=== PATIENT | female | born 1980 ===

== ENCOUNTER 2018-10-10 09:58 | Inpatient (IN) | payer BC ==
--- NOTE | 2018-10-10 10:55 | C.PDOC ---
History Of Present Illness 38 year old female, with no significant past medical history, presents to the ED for evaluation of an abscess to her left upper arm which developed over the past 2-3 weeks. Patient was evaluated by Dr. Spring in office and advised to report to the hospital for an I&D in the OR. Patient states the area was larger in size, but became smaller and started draining last night. Patient denies fever, chills. Time Seen by Provider: 10/10/18 10:13 Chief Complaint (Nursing): Abnormal Skin Integrity History Per: Patient History/Exam Limitations: no limitations Onset/Duration Of Symptoms: Days Current Symptoms Are (Timing): Still Present Location Of Injury: Left: Arm (upper) Quality Of Symptoms: Draining Additional History Per: Patient Past Medical History Reviewed: Historical Data, Nursing Documentation, Vital Signs Vital Signs: Last Vital Signs Temp 98 F 10/10/18 10:03 Pulse 94 H 10/10/18 10:03 Resp 18 10/10/18 10:03 BP 107/77 10/10/18 10:03 Pulse Ox 97 10/10/18 10:03 - Medical History PMH: No Chronic Diseases Surgical History: No Surg Hx Family History: States: Unknown Family Hx - Social History Hx Alcohol Use: No Hx Substance Use: No - Immunization History Hx Tetanus Toxoid Vaccination: No Hx Influenza Vaccination: Yes Hx Pneumococcal Vaccination: No Review Of Systems Constitutional: Negative for: Fever, Chills Skin: Positive for: Other (draining abscess to left upper arm ) Physical Exam - Physical Exam Appears: Non-toxic, No Acute Distress, Other (comfortable ) Skin: Warm, Dry, Other (inner aspect of left upper arm: 2.5cm fluctuant abscess that is draining purulent discharge ) Head: Atraumatic, Normacephalic Eye(s): bilateral: Normal Inspection Oral Mucosa: Moist Neck: Supple Chest: Symmetrical, No Deformity, No Tenderness Cardiovascular: Rhythm Regular, No Murmur Respiratory: Normal Breath Sounds, No Rales, No Rhonchi, No Wheezing Extremity: Normal ROM, Capillary Refill (less than 2 seconds ) Neurological/Psych: Oriented x3, Normal Speech, Normal Cognition ED Course And Treatment - Laboratory Results Result Diagrams: 10/10/18 10:57 O2 Sat by Pulse Oximetry: 97 (on RA) Pulse Ox Interpretation: Normal Progress Note: Bloodwork and urinalysis ordered and reviewed. Patient will be evaluated in the O.R. by Dr. Spring. Disposition - Disposition Forms: [employer] (Ukrainian) - Scribe Statement The provider has reviewed the documentation as recorded by the Scribe (Johanne Rincon) Provider Attestation: All medical record entries made by the Scribe were at my direction and personally dictated by me. I have reviewed the chart and agree that the record accurately reflects my personal performance of the history, physical exam, medical decision making, and the department course for this patient. I have also personally directed, reviewed, and agree with the discharge instructions and disposition.
--- NOTE | 2018-10-10 11:00 | C.PDOC ---
History Of Present Illness 38 year old female, with no significant past medical history, presents to the ED for evaluation of an abscess to her left upper arm which developed over the past 2-3 weeks. Patient was evaluated by Dr. Spring in office and advised to report to the hospital for an I&D in the OR. Patient states the area was larger in size, but became smaller and started draining last night. Patient denies fever, chills. Time Seen by Provider: 10/10/18 10:13 History Per: Patient History/Exam Limitations: no limitations Onset/Duration Of Symptoms: Abscess Current Symptoms Are (Timing): Still Present Location Of Injury: Left: Arm (upper) Quality Of Symptoms: Draining Additional History Per: Patient Past Medical History Reviewed: Historical Data, Nursing Documentation, Vital Signs Vital Signs: Last Vital Signs Temp 98 F 10/10/18 10:03 Pulse 94 H 10/10/18 10:03 Resp 18 10/10/18 10:03 BP 107/77 10/10/18 10:03 Pulse Ox 97 10/10/18 10:03 - Medical History PMH: No Chronic Diseases Surgical History: No Surg Hx Family History: States: Unknown Family Hx - Social History Hx Alcohol Use: No Hx Substance Use: No - Immunization History Hx Tetanus Toxoid Vaccination: No Hx Influenza Vaccination: Yes Hx Pneumococcal Vaccination: No Review Of Systems Constitutional: Negative for: Fever, Chills Skin: Positive for: Other (draining abscess to left upper arm ) Physical Exam - Physical Exam Appears: Non-toxic, No Acute Distress, Other (comfortable ) Skin: Warm, Dry, Other (inner aspect of left upper arm: 2.5cm fluctuant abscess that is draining purulent discharge ) Head: Atraumatic, Normacephalic Eye(s): bilateral: Normal Inspection Oral Mucosa: Moist Neck: Supple Chest: Symmetrical, No Deformity, No Tenderness Cardiovascular: Rhythm Regular, No Murmur Respiratory: Normal Breath Sounds, No Rales, No Rhonchi, No Wheezing Extremity: Normal ROM, Capillary Refill (less than 2 seconds ) Neurological/Psych: Oriented x3, Normal Speech, Normal Cognition ED Course And Treatment O2 Sat by Pulse Oximetry: 97 Progress Note: Bloodwork and urinalysis ordered and reviewed. Patient will be seen in the O.R. by Dr. Spring.
[2018-10-10 11:14] LABS: BASO # 0.1 K/uL (0.0-0.2); BASO % 0.7 % (0.0-2.0); EOS % 0.4 % (0.0-4.0); HEMOGLOBIN 11.7 g/dL (11.0-16.0); LYMPH # 2.9 K/uL (1.0-4.3); LYMPH % 24.9 % (20.0-40.0); MEAN CELL VOLUME 83.5 fL (81.0-99.0); MEAN CORPUSCULAR HGB CONC 33.5 g/dL (33.0-37.0); MONO # 0.6 K/uL (0.0-0.8); MONO % 4.9 % (0.0-10.0); NEUT # 8.2 K/uL (1.8-7.0); NEUT % 69.1 % (50.0-75.0); RBC 4.19 Mil/uL (3.80-5.20); RED CELL DISTRIBUTION WIDTH 13.7 % (11.5-14.5); WHITE BLOOD COUNT 11.8 K/uL (4.8-10.8)
[2018-10-10 11:20] LABS: INR 1.1; PROTHROMBIN TIME 12.5 SECONDS (9.7-12.2)
[2018-10-10 11:54] LABS: ALB/GLOB RATIO 1.1 (1.0-2.1); ALBUMIN 4.5 g/dL (3.5-5.0); ALT/SGPT 16 U/L (9-52); AST/SGOT 22 U/L (14-36); BLOOD UREA NITROGEN 14 mg/dL (7-17); GFR NON-AFRICAN AMERICAN > 60
[2018-10-10] MEDS ORDERED: Vancomycin 1 gm/D5W 200 ml 1 GM/200 ML BAG IVPB ONE (12:04)
[2018-10-10] MEDS ORDERED: Midazolam 2 MG/2 ML VIAL ONE (12:11)
[2018-10-10] MEDS ORDERED: Propofol 10 mg/ml Inj (20 ML) ONE (12:11)
[2018-10-10] MEDS ORDERED: Lactated Ringer's 1,000 ML IV ONE (13:13)
[2018-10-10] MEDS: HYDROmorphone 0.5 mg/0.5 ml ISec IVP PRN ×3 (13:23→15:18)
--- NOTE | 2018-10-10 14:21 | CP.PCM.PN ---
Subjective - Date & Time of Evaluation Date of Evaluation: 10/10/18 Time of Evaluation: 14:18 - Subjective Subjective: Medicine Consult note for Dr. Merino This 38 year old female, with no significant past medical history, presents to the [facility] [place] ED for evaluation of an abscess to her left upper arm which developed over the past month. It began as an irritation 1 month ago in the L arm-pit, which progressively grew over 2 wks, becoming more inflamed, warm, and tender. She went to an urgent care to have the site evaluated. A CXR, US, and Mammogram were ordered, and resulted with normal findings. She was referred to Dr. Spring by her PMD, who evaluated her yesterday. He advised her to report to the hospital for an I&D in the OR today. Early this morning, the site broke spontaneously, and partially drained. Currently she is s/p I&D in the OR with Dr. Spring. She denies f/c, dizziness, chest pain, SOB, abdominal pain, n/v, d/c, LE edema, or any additional acute complaints. 12-point ROS was reviewed and is otherwise negative. PMH: none Surgical History: No Surg Hx Meds: none NKDA Family History: Mother 71yo w/DM; Father at 48yo 2/2 AIDs SocHx: Denies tobacco or illicit drug use. ETOH socially, 1 beer /mo. 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 Full Code PMD: Dr. Marie Objective - Vital Signs/Intake and Output Vital Signs (last 24 hours): Temp Pulse Resp BP Pulse Ox 98 F 94 H 18 107/77 97 10/10/18 10:03 10/10/18 10:03 10/10/18 10:03 10/10/18 10:03 10/10/18 11:21 Intake and Output: 10/10/18 10/10/18 06:59 18:59 Intake Total 200 Balance 200 - Medications Medications: Current Medications Acetaminophen/Codeine Phosphate (Tylenol/Codeine 300 Mg/30 Mg) 1 ea PO Q4H PRN PRN Reason: pain Docusate Sodium (Colace) 100 mg PO BID [facility] Enoxaparin Sodium (Lovenox) 30 mg SC DAILY [facility] Hydromorphone HCl (Dilaudid) 0.5 mg IVP Q10M PRN PRN Reason: Pain, moderate (4-7) Stop: 10/10/18 15:00 Last Admin: 10/10/18 13:37 Dose: 0.5 mg Dextrose/Sodium Chloride (Dextrose 5%/0.45% Ns 1000 Ml) 1,000 mls @ 60 mls/hr IV [id number] Vancomycin/Sodium Chloride (Vancomycin 1 Gm/Ns 200 Ml) 1 gm in 200 mls @ 133.333 mls/hr IVPB Q12H [facility]ARYANN; Protocol Ketorolac Tromethamine (Toradol) 30 mg IVP Q6 PRN PRN Reason: pain 7-10 Stop: 10/15/18 13:09 Ondansetron HCl (Zofran Inj) 4 mg IVP Q6 PRN PRN Reason: Nausea/Vomiting Pantoprazole Sodium (Protonix Inj) 40 mg IVP DAILY [facility] - Labs Labs: 10/10/18 10:57 10/10/18 10:57 PT 12.5 SECONDS (9.7-12.2) H 10/10/18 10:57 INR 1.1 10/10/18 10:57 APTT 41 SECONDS (21-34) H 10/10/18 10:57 - Additional Findings Additional findings: - Constitutional Appears: Non-toxic, No Acute Distress - Head Exam Head Exam: ATRAUMATIC, NORMAL INSPECTION - Eye Exam Eye Exam: EOMI, Normal appearance - ENT Exam ENT Exam: Mucous Membranes Dry - Neck Exam Neck Exam: absent: Tenderness, Lymphadenopathy - Respiratory Exam Respiratory Exam: NORMAL BREATHING PATTERN. absent: Rales, Wheezes - Cardiovascular Exam Cardiovascular Exam: Regular Rate, +S1, +S2 - GI/Abdominal Exam GI & Abdominal Exam: Soft, Normal Bowel Sounds. absent: Tenderness - Extremities Exam Extremities Exam: Full ROM, Normal Inspection. absent: Pedal Edema, Tenderness note: L upper extremity bandages s/p I&D of L axilla. Site C/D/I. Mildly TTP. - Back Exam Back Exam: NORMAL INSPECTION. absent: CVA tenderness (L), CVA tenderness (R) - Neurological Exam Neurological Exam: Alert, Awake, Oriented x3 - Psychiatric Exam Psychiatric exam: Normal Affect, Normal Mood - Skin Skin Exam: Dry, Intact, Normal Color, Warm Assessment and Plan - Assessment and Plan (Free Text) Assessment: Arm Abscess - L arm * Patient s/p I&D of L axilla abscess on 10/10/18. Tolerated procedure well. Dressings C/D/I. * General surgery consult, Dr. Spring, help appreciated. * ID consult, Dr. Marie, help appreciated. * D5 1/2 NS at 60cc/hr * Vanco 1Gm IVPB Q12H * Zofran Inj) 4 mg IVP Q6 PRN * f/u wound / tissue cultures Pain Management * Tylenol/Codeine 300 Mg/30 Mg) 1 ea PO Q4H PRN mild pain * Dilaudid) 0.5 mg IVP Q10M PRN moderate pain * Toradol) 30 mg IVP Q6 PRN moderate pain Prophylaxis * Colace) 100 mg PO BID MARYANN * Lovenox) 30 mg SC DAILY MARYANN * Protonix Inj) 40 mg IVP DAILY MARYANN * SCDs Case discussed with Dr. Merino. All managment as per Dr. Merino.
--- NOTE | 2018-10-10 17:27 | CP.PCM.CON ---
History of Present Illness - History of Present Illness History of Present Illness: 38 year old female, presents to the ED for evaluation of an abscess to her left upper arm which developed over the past 2-3 weeks. Patient was seen by urgent care MD and failed out pt management Called office and referred for surgical eval- found to have large left axillary collection requiring urgent I and D PMH- gestational Diabetes FH + diabetes SH- no etoh no IVDU no smoking NKDA Review of Systems - Review of Systems All systems: reviewed and no additional remarkable complaints except - Constitutional Constitutional: As Per HPI - EENT Eyes: absent: As Per HPI, Blind Spots, Blurred Vision, Change in Vision, Decreased Night Vision, Diplopia, Discharge, Dry Eye, Exophthalmos, Floaters, Irritation, Itchy Eyes, Loss of Peripheral Vision, Pain, Photophobia, Requires Corrective Lenses, Sees Flashes, Spots in Vision, Tunnel Vision, Other Visual Disturbances, Loss of Vision, Other Ears: absent: As Per HPI, Decreased Hearing, Ear Discharge, Ear Pain, Tinnitus, Abnormal Hearing, Disequilibrium, Dizziness, Other Nose/Mouth/Throat: absent: As Per HPI, Epistaxis, Nasal Congestion, Nasal Discharge, Nasal Obstruction, Nasal Trauma, Nose Pain, Post Nasal Drip, Sinus Pain, Sinus Pressure, Bleeding Gums, Change in Voice, Dental Pain, Dry Mouth, Dysphagia, Halitosis, Hoarsness, Lip Swelling, Mouth Lesions, Mouth Pain, Odynophagia, Sore Throat, Throat Swelling, Tongue Swelling, Facial Pain, Neck Pain, Neck Mass, Other - Breasts Breasts: absent: As Per HPI, Change in Shape, Mass, Pain, Nipple Discharge, Nipple Inversion, Skin Changes, Swelling, Other - Cardiovascular Cardiovascular: absent: As Per HPI, Acrocyanosis, Chest Pain, Chest Pain at Rest, Chest Pain with Activity, Claudication, Diaphoresis, Dyspnea, Dyspnea on Exertion, Edema, Irregular Heart Rhythm, Pain Radiating to Arm/Neck/Jaw, Leg Edema, Leg Ulcers, Lightheadedness, Orthopnea, Palpitations, Paroxysmal Nocturnal Dyspnea, Pedal Edema, Radiating Pain, Rapid Heart Rate, Slow Heart Rat e, Syncope, Other - Respiratory Respiratory: absent: As Per HPI, Cough, Dyspnea, Hemoptysis, Dyspnea on Exertion, Wheezing, Snoring, Stridor, Pain on Inspiration, Chest Congestion, Excessive Mucous Production, Change in Mucous Color, Pain with Coughing, Other - Gastrointestinal Gastrointestinal: absent: As Per HPI, Abdominal Pain, Belching, Bloating, Change in Bowel Habits, Change in Stool Character, Coffee Ground Emesis, Constipation, Cramping, Diarrhea, Dyspepsia, Dysphagia, Early Satiety, Excessive Flatus, Fecal Incontinence, Heartburn, Hematemesis, Hematochezia, Loose Stools, Melena, Nausea, Odynophagia, Temesmus, Vomiting, Other - Genitourinary Genitourinary: absent: As Per HPI, Change in Urinary Stream, Difficulty Urinating, Dysuria, Flank Pain, Hematuria, Pyuria, Nocturia, Urinary Incontinence, Urinary Frequency, Urinary Hesitance, Urinary Urgency, Voiding Freq/Small Amts, Freq UTI, Hx Renal/Bladder Calculi, Hx /Renal Surgery, Bladder Distension, Other - Reproductive: Female Reproductive:Female: absent: As Per HPI, Amenorrhea, Amenorrhea/ Control, Currently Menstual, Cycle <21 Days, Cycle >35 Days, Cycle Variable, Menses 1-7 Days, Menses >/= 8 Days, Menses Variable, Cycle > 4 Weeks Between, No Menses for 6 Months, Heavy Menses, Light Menses, Normal Menses, Spotting Between Cycles, S/P Hysterectomy, Menopausal, Post Menopausal, Premenarche, Abnormal Vaginal Bleeding, Dysmenorrhea, Dyspareunia, Genital Lesions, Genital Pruritis, Pelvic Pain, Prolapse Symptoms, Sexual Dysfunction, Vaginal Discharge, Vaginal Dryness, Vaginal Odor, Vaginal Pruritis, Other - Menstruation Menstruation: absent: As Per HPI, Amenorrhea, Amenorrhea/ Control, Currently Menstual, Cycle <21 Days, Cycle >35 Days, Cycle Variable, Menses 1-7 Days, Menses >/= 8 Days, Menses Variable, Cycle > 4 Weeks Between, No Menses for 6 Months, Heavy Menses, Light Menses, Normal Menses, Spotting Between Cycles, S/P Hysterectomy, Menopausal, Post Menopausal, Premenarche, Abnormal Vaginal Bleeding, Dysmenorrhea, Other - Musculoskeletal Musculoskeletal: As Per HPI - Integumentary Integumentary: As Per HPI - Neurological Neurological: absent: As Per HPI, Abnormal Gait, Abnormal Hearing, Abnormal Movements, Abnormal Speech, Behavioral Changes, Burning Sensations, Confusion, Convulsions, Disequilibrium, Dizziness, Numbness, Focal Weakness, Frequent Falls, Headaches, Lack of Coordination, Loss of Vision, Memory Loss, Paresthesias, Radicular Pain, Restless Legs, Sensory Deficit, Syncope, Tingling, Tremor, Vertigo, Weakness, Other Visual Disturbances, Other - Psychiatric Psychiatric: absent: As Per HPI, Abnormal Sleep Pattern, Anhedonia, Anxiety, Auditory Hallucinations, Behavioral Changes, Change in Appetite, Change in Libido, Confusion, Depression, Difficulty Concentrating, Hallucinations, Homicidal Ideation, Hopelessness, Irritability, Memory Loss, Mood Swings, Panic Attacks, Paranoia, Suicidal Ideation, Visual Hallucinations, Tactile Hallucinations, Other - Endocrine Endocrine: As Per HPI - Hematologic/Lymphatic Hematologic: absent: As Per HPI, Easy Bleeding, Easy Bruising, Lymphadenopathy, Other Past Patient History - Past Social History Smoking Status: Never Smoked - PSYCHIATRIC Hx Substance Use: No - SURGICAL HISTORY Hx Surgeries: Yes Other/Comment: tooth extraction - ANESTHESIA Hx Anesthesia: Yes Hx Anesthesia Reactions: No Meds Allergies/Adverse Reactions: Allergies Allergy/AdvReac Type Severity Reaction Status Date / Time No Known Allergies Allergy Verified 10/10/18 10:08 - Medications Medications: Current Medications Acetaminophen/Codeine Phosphate (Tylenol/Codeine 300 Mg/30 Mg) 1 ea PO Q4H PRN PRN Reason: pain Docusate Sodium (Colace) 100 mg PO BID [facility] Enoxaparin Sodium (Lovenox) 30 mg SC DAILY [facility] Dextrose/Sodium Chloride (Dextrose 5%/0.45% Ns 1000 Ml) 1,000 mls @ 60 mls/hr IV .[id number] [facility] Vancomycin/Sodium Chloride (Vancomycin 1 Gm/Ns 200 Ml) 1 gm in 200 mls @ 133.333 mls/hr IVPB Q12H [facility]; Protocol Ketorolac Tromethamine (Toradol) 30 mg IVP Q6 PRN PRN Reason: pain 7-10 Stop: 10/15/18 13:09 Ondansetron HCl (Zofran Inj) 4 mg IVP Q6 PRN PRN Reason: Nausea/Vomiting Pantoprazole Sodium (Protonix Inj) 40 mg IVP DAILY [facility] Physical Exam - Constitutional Appears: Non-toxic, Chronically Ill - Head Exam Head Exam: NORMOCEPHALIC - Eye Exam Eye Exam: absent: Scleral icterus - ENT Exam ENT Exam: Mucous Membranes Dry - Neck Exam Neck exam: Negative for: Lymphadenopathy - Respiratory Exam Respiratory Exam: Decreased Breath Sounds, Clear to Auscultation Bilateral - Cardiovascular Exam Cardiovascular Exam: REGULAR RHYTHM, +S1, +S2 - GI/Abdominal Exam GI & Abdominal Exam: Diminished Bowel Sounds, Soft. absent: Tenderness - Rectal Exam Rectal Exam: Deferred - Exam Exam: NORMAL INSPECTION - Extremities Exam Extremities exam: Positive for: full ROM, normal capillary refill, pedal pulses present. Negative for: calf tenderness, joint swelling, pedal edema, tenderness Additional comments: LUE swelling wound dressing in place - Back Exam Back exam: absent: CVA tenderness (L), CVA tenderness (R) - Neurological Exam Neurological exam: Alert, CN II-XII Intact, Oriented x3, Reflexes Normal - Psychiatric Exam Psychiatric exam: Normal Mood - Skin Skin Exam: Dry, Intact Results - Vital Signs Recent Vital Signs: Last Vital Signs Temp 98 F 10/10/18 16:00 Pulse 76 10/10/18 16:00 Resp 13 10/10/18 16:00 BP 116/71 10/10/18 16:00 Pulse Ox 97 10/10/18 16:00 - Labs Result Diagrams: 10/10/18 10:57 10/10/18 10:57 Labs: Laboratory Results - last 24 hr 10/10/18 10/10/18 10/10/18 10:57 10:57 10:57 WBC 11.8 H RBC 4.19 Hgb 11.7 Hct 35.0 MCV 83.5 MCH 28.0 MCHC 33.5 RDW 13.7 Plt Count 514 H MPV 8.0 Neut % (Auto) 69.1 Lymph % (Auto) 24.9 Hodgeman % (Auto) 4.9 Eos % (Auto) 0.4 Baso % (Auto) 0.7 Neut # (Auto) 8.2 H Lymph # (Auto) 2.9 Hodgeman # (Auto) 0.6 Eos # (Auto) 0.0 Baso # (Auto) 0.1 PT 12.5 H INR 1.1 APTT 41 H Sodium 137 Potassium 4.0 Chloride 101 Carbon Dioxide 27 Anion Gap 14 BUN 14 Creatinine 0.6 L Est GFR ( Amer) > 60 Est GFR (Non-Af Amer) > 60 Random Glucose 103 Calcium 9.0 Total Bilirubin 0.4 AST 22 ALT 16 Alkaline Phosphatase 108 Total Protein 8.5 H Albumin 4.5 Globulin 4.0 H Albumin/Globulin Ratio 1.1 Urine HCG, Qual Blood Type Antibody Screen 10/10/18 10/10/18 10:57 11:40 WBC RBC Hgb Hct MCV MCH MCHC RDW Plt Count MPV Neut % (Auto) Lymph % (Auto) Hodgeman % (Auto) Eos % (Auto) Baso % (Auto) Neut # (Auto) Lymph # (Auto) Hodgeman # (Auto) Eos # (Auto) Baso # (Auto) PT INR APTT Sodium Potassium Chloride Carbon Dioxide Anion Gap BUN Creatinine Est GFR ( Amer) Est GFR (Non-Af Amer) Random Glucose Calcium Total Bilirubin AST ALT Alkaline Phosphatase Total Protein Albumin Globulin Albumin/Globulin Ratio Urine HCG, Qual Negative Blood Type O POSITIVE Antibody Screen Negative Assessment & Plan (1) Abscess of arm, left Status: Acute (2) Cellulitis Status: Acute - Assessment and Plan (Free Text) Assessment: await cultures of wound may need further debridement cont wound care as ordered will check Vanco levels
[2018-10-10] MEDS: Dextrose 5%/0.45% NS 1,000 ML IV SCH (18:00)
[2018-10-10] MEDS: Acetaminophen-Codeine 300/30 mg Tab PO PRN (19:23)
--- NOTE | 2018-10-10 22:20 | OP ---
PROCEDURE DATE: 10/10/2018 PREOPERATIVE DIAGNOSIS: Infected mass and extensive abscess of the left arm and axilla. POSTOPERATIVE DIAGNOSIS: Infected mass and extensive abscess of the left arm and axilla. PROCEDURE PERFORMED: Wide and deep excision of infected left axillary mass with underlying drainage of deep axillary abscess. SURGEON: Pb Spring MD ANESTHESIA: General. BLOOD LOSS: 40 mL. POSTOPERATIVE CONDITION: Stable. INDICATIONS FOR SURGERY: This is a 38-year-old female who presented to my office yesterday with a large impending abscess of the left arm and axilla. She presented to the emergency room where she was admitted today and taken immediately to the operating room for drainage. GROSS FINDINGS: There was an inflammatory mass in the left arm axillary region, underlying this was a deep abscess which tracked proximally deep into the axillary and chest cavity. 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 DESCRIPTION OF PROCEDURE: The patient was taken to the operating room and general anesthesia was administered. The left arm and axilla were prepped and draped. A generous elliptical incision was made surrounding the mass. It was excised and the abscess was unroofed and opened. The underlying track was found to go deep into the axilla, a portion of this was unroofed by inserting a large clamp and dividing the tissue over it. Once the abscess cavity had been widely opened, it was debrided and drained and cultured. Bleeding was controlled with the Bovie. A larger chest wall blood vessel was repaired and wound was irrigated with copious amounts of saline solution. A partial tissue flap closure was performed at the periphery. The central portion of wound was packed with saline gauze. The patient tolerated the procedure well, returned to recovery room in stable condition. Pb Spring MD
[2018-10-11 06:35] LABS: BASO # 0.1 K/uL (0.0-0.2); BASO % 0.9 % (0.0-2.0); EOS # 0.1 K/uL (0.0-0.7); EOS % 1.3 % (0.0-4.0); HEMOGLOBIN 10.7 g/dL (11.0-16.0); LYMPH # 2.3 K/uL (1.0-4.3); LYMPH % 23.5 % (20.0-40.0); MEAN CELL VOLUME 84.1 fL (81.0-99.0); MEAN CORPUSCULAR HEMOGLOBIN 28.3 pg (27.0-31.0); MEAN CORPUSCULAR HGB CONC 33.7 g/dL (33.0-37.0); MEAN PLATELET VOLUME 8.1 fL (7.2-11.7); MONO # 0.6 K/uL (0.0-0.8); MONO % 5.6 % (0.0-10.0); NEUT # 6.7 K/uL (1.8-7.0); NEUT % 68.7 % (50.0-75.0); RBC 3.76 Mil/uL (3.80-5.20); RED CELL DISTRIBUTION WIDTH 13.8 % (11.5-14.5); WHITE BLOOD COUNT 9.8 K/uL (4.8-10.8)
[2018-10-11 06:55] LABS: BLOOD UREA NITROGEN 7 mg/dL (7-17); CALCIUM 8.3 mg/dl (8.6-10.4); GFR NON-AFRICAN AMERICAN > 60
--- NOTE | 2018-10-11 07:13 | CP.PCM.PN ---
Subjective - Date & Time of Evaluation Date of Evaluation: 10/11/18 Time of Evaluation: 07:12 - Subjective Subjective: Medicine Progress Note - Dr Merino's Service Patient seen and examined at bedside. Per nursing no acute events overnight. Patient is s/p I+D of left axillary abscess. Patient tolerated the procedure well. States that the pain is controlled. She is ambulating and tolerating diet. She will be NPO at midnight for the OR tomorrow. Offers no other complaints at this time. Objective - Vital Signs/Intake and Output Vital Signs (last 24 hours): Temp Pulse Resp BP Pulse Ox 97.9 F 89 17 116/71 97 10/11/18 05:30 10/11/18 05:30 10/11/18 05:30 10/11/18 05:30 10/11/18 05:30 Intake and Output: 10/11/18 10/11/18 06:59 18:59 Output Total 450 Balance -450 - Medications Medications: Current Medications Acetaminophen/Codeine Phosphate (Tylenol/Codeine 300 Mg/30 Mg) 1 ea PO Q4H PRN PRN Reason: pain Last Admin: 10/10/18 19:23 Dose: 1 ea Docusate Sodium (Colace) 100 mg PO BID [facility] Last Admin: 10/10/18 20:30 Dose: 100 mg Enoxaparin Sodium (Lovenox) 30 mg SC DAILY [facility] Dextrose/Sodium Chloride (Dextrose 5%/0.45% Ns 1000 Ml) 1,000 mls @ 60 mls/hr IV .[id number] [facility] Last Admin: 10/10/18 18:00 Dose: 300 mls Vancomycin/Sodium Chloride (Vancomycin 1 Gm/Ns 200 Ml) 1 gm in 200 mls @ 133.333 mls/hr IVPB Q12H [facility]; Protocol Last Admin: 10/11/18 00:00 Dose: 200 mls Ketorolac Tromethamine (Toradol) 30 mg IVP Q6 PRN PRN Reason: pain 7-10 Stop: 10/15/18 13:09 Ondansetron HCl (Zofran Inj) 4 mg IVP Q6 PRN PRN Reason: Nausea/Vomiting Last Admin: 10/10/18 16:53 Dose: 4 mg Pantoprazole Sodium (Protonix Inj) 40 mg IVP DAILY [facility] - Labs Labs: 10/11/18 06:26 10/11/18 06:26 PT 12.5 SECONDS (9.7-12.2) H 10/10/18 10:57 INR 1.1 10/10/18 10:57 APTT 41 SECONDS (21-34) H 10/10/18 10:57 - Constitutional Appears: Non-toxic, No Acute Distress - Head Exam Head Exam: ATRAUMATIC, NORMAL INSPECTION, NORMOCEPHALIC - Eye Exam Eye Exam: EOMI, Normal appearance Pupil Exam: NORMAL ACCOMODATION - ENT Exam ENT Exam: Mucous Membranes Moist - Respiratory Exam Respiratory Exam: Clear to Ausculation Bilateral, NORMAL BREATHING PATTERN. absent: Rales, Rhonchi, Wheezes - Cardiovascular Exam Cardiovascular Exam: REGULAR RHYTHM, +S1, +S2 - GI/Abdominal Exam GI & Abdominal Exam: Soft. absent: Guarding, Rigid, Tenderness - Extremities Exam Extremities Exam: Full ROM, Normal Inspection. absent: Calf Tenderness Additional comments: Left axillary dressing c/d/i, no surrounding erythema, radial pulses intact - Back Exam Back Exam: NORMAL INSPECTION - Neurological Exam Neurological Exam: Alert, Awake, Oriented x3 - Psychiatric Exam Psychiatric exam: Normal Affect, Normal Mood - Skin Skin Exam: Normal Color, Warm Assessment and Plan - Assessment and Plan (Free Text) Assessment: Left axillary abscess -Stable, afebrile -Patient s/p I&D of L axilla abscess on 10/10/18. Tolerated procedure well. Dressings C/D/I. -Awaiting tissue and wound cultures -Antibiotics: Vanco 1gm IVPB Q12H -Zofran Inj 4 mg IVP Q6 PRN -Tylenol/Codeine 300 Mg/30 Mg 1 ea PO Q4H PRN mild pain -Toradol 30mg Q8H IVP prn severe pain -OOB to chair, encourage ambulation -NPO at midnight for the OR 10/12/[address] Spring -General surgery consult, Dr. Spring, help appreciated. -ID consult, Dr. Marie, help appreciated. Gestational Diabetes -S/P vaginal delivery 4 months ago, uncomplicated -HgA1C 5.5, TSH 1.18 Prophylaxis -Colace 100 mg PO BID MRAYANN -Lovenox 30 mg SC DAILY [facility] -Protonix 40 mg IVP DAILY [facility] -SCDs Case discussed with Dr. Merino. All management as per Dr. Merino. Nel Pugh DO PGY-2
[2018-10-11] MEDS: Enoxaparin 30 mg Syringe SC SCH ×2 (09:39→10:00)
[2018-10-11] MEDS: Acetaminophen-Codeine 300/30 mg Tab PO PRN ×2 (09:40→20:36)
[2018-10-11] MEDS: Vancomycin 1 gm/NS 200 ml 1 GM/200 ML BAG IVPB SCH ×2 (12:45)
--- NOTE | 2018-10-11 19:30 | CP.PCM.PN ---
Subjective - Date & Time of Evaluation Date of Evaluation: 10/11/18 Time of Evaluation: 08:00 - Subjective Subjective: less pain and swelling chart reviewed patient examined afeb nad at bedside Objective - Vital Signs/Intake and Output Vital Signs (last 24 hours): Temp Pulse Resp BP Pulse Ox 97.3 F L 76 13 117/74 97 10/11/18 16:00 10/11/18 16:00 10/11/18 16:00 10/11/18 16:00 10/11/18 16:00 Intake and Output: 10/11/18 10/12/18 18:59 06:59 Output Total 100 Balance -100 - Medications Medications: Current Medications Acetaminophen/Codeine Phosphate (Tylenol/Codeine 300 Mg/30 Mg) 1 ea PO Q4H PRN PRN Reason: pain Last Admin: 10/11/18 09:40 Dose: 1 ea Docusate Sodium (Colace) 100 mg PO BID [facility] Last Admin: 10/11/18 18:30 Dose: 100 mg Enoxaparin Sodium (Lovenox) 30 mg SC DAILY [facility] Last Admin: 10/11/18 09:39 Dose: 30 mg Dextrose/Sodium Chloride (Dextrose 5%/0.45% Ns 1000 Ml) 1,000 mls @ 60 mls/hr IV .[id number] [facility] Last Admin: 10/10/18 18:00 Dose: 300 mls Vancomycin/Sodium Chloride (Vancomycin 1 Gm/Ns 200 Ml) 1 gm in 200 mls @ 133.333 mls/hr IVPB Q12H [facility]; Protocol Last Admin: 10/11/18 12:45 Dose: 200 mls Ketorolac Tromethamine (Toradol) 30 mg IVP Q6 PRN PRN Reason: pain 7-10 Stop: 10/15/18 13:09 Last Admin: 10/11/18 11:35 Dose: 30 mg Ondansetron HCl (Zofran Inj) 4 mg IVP Q6 PRN PRN Reason: Nausea/Vomiting Last Admin: 10/10/18 16:53 Dose: 4 mg Pantoprazole Sodium (Protonix Inj) 40 mg IVP DAILY [facility] Last Admin: 10/11/18 09:39 Dose: 40 mg - Labs Labs: 10/11/18 06:26 10/11/18 06:26 PT 12.5 SECONDS (9.7-12.2) H 10/10/18 10:57 INR 1.1 10/10/18 10:57 APTT 41 SECONDS (21-34) H 10/10/18 10:57 - Constitutional Appears: Non-toxic, Chronically Ill - Head Exam Head Exam: NORMOCEPHALIC - Eye Exam Eye Exam: absent: Scleral icterus - ENT Exam ENT Exam: Mucous Membranes Dry - Neck Exam Neck Exam: absent: Lymphadenopathy - Respiratory Exam Respiratory Exam: Decreased Breath Sounds - Cardiovascular Exam Cardiovascular Exam: REGULAR RHYTHM - GI/Abdominal Exam GI & Abdominal Exam: Distended, Soft - Rectal Exam Rectal Exam: Deferred - Exam Exam: NORMAL INSPECTION - Extremities Exam Extremities Exam: absent: Pedal Edema - Back Exam Back Exam: absent: CVA tenderness (L), CVA tenderness (R) Assessment and Plan (1) Abscess of arm, left Status: Acute (2) Cellulitis Status: Acute - Assessment and Plan (Free Text) Assessment: cont iv rx, wound care for OR in am check cultures possible out pt PO rx
[2018-10-12] MEDS: Vancomycin 1 gm/NS 200 ml 1 GM/200 ML BAG IVPB SCH ×2 (00:40→14:15)
--- NOTE | 2018-10-12 07:16 | CP.PCM.PN ---
"Subjective - Date & Time of Evaluation Date of Evaluation: 10/12/18 Time of Evaluation: 07:50 - Subjective Subjective: Patient seen and examined at bedside. Per nursing no acute events overnight. Patient is s/p I+D (POD 2)of left axillary abscess. Patient tolerated the procedure well. States that the pain is controlled. She is ambulating and tolerating diet. She will be NPO for the OR this afternoon. Objective - Vital Signs/Intake and Output Vital Signs (last 24 hours): Temp Pulse Resp BP Pulse Ox 98.4 F 92 H 20 110/71 96 10/11/18 23:00 10/11/18 23:00 10/11/18 23:00 10/11/18 23:00 10/11/18 23:00 - Medications Medications: Current Medications Acetaminophen/Codeine Phosphate (Tylenol/Codeine 300 Mg/30 Mg) 1 ea PO Q4H PRN PRN Reason: pain Last Admin: 10/11/18 20:36 Dose: 1 ea Docusate Sodium (Colace) 100 mg PO BID [facility] Last Admin: 10/11/18 20:38 Dose: 100 mg Enoxaparin Sodium (Lovenox) 30 mg SC DAILY [facility] Last Admin: 10/11/18 09:39 Dose: 30 mg Dextrose/Sodium Chloride (Dextrose 5%/0.45% Ns 1000 Ml) 1,000 mls @ 60 mls/hr IV .[id number] [facility] Last Admin: 10/10/18 18:00 Dose: 300 mls Vancomycin/Sodium Chloride (Vancomycin 1 Gm/Ns 200 Ml) 1 gm in 200 mls @ 133.333 mls/hr IVPB Q12H [facility]; Protocol Last Admin: 10/12/18 00:40 Dose: 133.333 mls/hr Ketorolac Tromethamine (Toradol) 30 mg IVP Q6 PRN PRN Reason: pain 7-10 Stop: 10/15/18 13:09 Last Admin: 10/11/18 11:35 Dose: 30 mg Ondansetron HCl (Zofran Inj) 4 mg IVP Q6 PRN PRN Reason: Nausea/Vomiting Last Admin: 10/10/18 16:53 Dose: 4 mg Pantoprazole Sodium (Protonix Inj) 40 mg IVP DAILY [facility] Last Admin: 10/11/18 09:39 Dose: 40 mg - Labs Labs: 10/11/18 06:26 10/11/18 06:26 PT 12.5 SECONDS (9.7-12.2) H 10/10/18 10:57 INR 1.1 10/10/18 10:57 APTT 41 SECONDS (21-34) H 10/10/18 10:57 - Additional Findings Additional findings: - Constitutional Appears: Non-toxic, No Acute Distress - Head Exam Head Exam: ATRAUMATIC, NORMAL INSPECTION, NORMOCEPHALIC - Eye Exam Eye Exam: EOMI, Normal appearance Pupil Exam: NORMAL ACCOMODATION - ENT Exam ENT Exam: Mucous Membranes Moist - Respiratory Exam Respiratory Exam: Clear to Ausculation Bilateral, NORMAL BREATHING PATTERN. absent: Rales, Rhonchi, Wheezes - Cardiovascular Exam Cardiovascular Exam: REGULAR RHYTHM, +S1, +S2 - GI/Abdominal Exam GI & Abdominal Exam: Soft. absent: Guarding, Rigid, Tenderness - Extremities Exam Extremities Exam: Full ROM, Normal Inspection. absent: Calf Tenderness Additional comments: Left axillary dressing c/d/i, no surrounding erythema, radial pulses intact - Back Exam Back Exam: NORMAL INSPECTION - Neurological Exam Neurological Exam: Alert, Awake, Oriented x3 - Psychiatric Exam Psychiatric exam: Normal Affect, Normal Mood - Skin Skin Exam: Normal Color, Warm Assessment and Plan - Assessment and Plan (Free Text) Assessment: Left axillary abscess -Stable, afebrile -Patient s/p I&D of L axilla abscess on 10/10/18. Tolerated procedure well. Dressings C/D/I. -Abscess Axilla Culture: Staphylococcus Epidermis | Tissue Culture - NEGATIVE | MRSA - NEGATIVE. -Antibiotics: Vanco 1gm IVPB Q12H | Antibiotics per ID. -Zofran Inj 4 mg IVP Q6 PRN -Tylenol/Codeine 300 Mg/30 Mg 1 ea PO Q4H PRN mild pain -Toradol 30mg Q8H IVP prn severe pain -OOB to chair, encourage ambulation -NPO at midnight for the OR 10/12/[address] Spring -General surgery consult, Dr. Spring, help appreciated. -ID consult, Dr. Marie, help appreciated. Gestational Diabetes -S/P vaginal delivery 4 months ago, uncomplicated -HgA1C 5.5, TSH 1.18 Prophylaxis -Colace 100 mg PO BID MARYANN -Lovenox 30 mg SC DAILY [facility] -Protonix 40 mg IVP DAILY [facility] -SCDs Case discussed with Dr. Merino. Ever Miranda, DO PGY-2"
[2018-10-12 11:17] LABS: BASO # 0.1 K/uL (0.0-0.2); EOS # 0.1 K/uL (0.0-0.7); EOS % 1.1 % (0.0-4.0); HEMOGLOBIN 10.1 g/dL (11.0-16.0); LYMPH # 2.4 K/uL (1.0-4.3); LYMPH % 29.4 % (20.0-40.0); MEAN CELL VOLUME 84.1 fL (81.0-99.0); MEAN CORPUSCULAR HEMOGLOBIN 27.8 pg (27.0-31.0); MEAN CORPUSCULAR HGB CONC 33.1 g/dL (33.0-37.0); MEAN PLATELET VOLUME 7.8 fL (7.2-11.7); MONO # 0.5 K/uL (0.0-0.8); MONO % 5.7 % (0.0-10.0); NEUT # 5.1 K/uL (1.8-7.0); NEUT % 62.8 % (50.0-75.0); RBC 3.65 Mil/uL (3.80-5.20); RED CELL DISTRIBUTION WIDTH 13.3 % (11.5-14.5); WHITE BLOOD COUNT 8.2 K/uL (4.8-10.8)
[2018-10-12 11:57] LABS: ALB/GLOB RATIO 1.1 (1.0-2.1); ALBUMIN 3.4 g/dL (3.5-5.0); ALT/SGPT 23 U/L (9-52); AST/SGOT 18 U/L (14-36); BLOOD UREA NITROGEN 10 mg/dL (7-17); CALCIUM 8.4 mg/dl (8.6-10.4); GFR NON-AFRICAN AMERICAN > 60
[2018-10-12] MEDS ORDERED: Midazolam 2 MG/2 ML VIAL ONE (14:53)
[2018-10-12] MEDS ORDERED: Propofol 10 mg/ml Inj (20 ML) ONE (14:53)
[2018-10-12] MEDS: Dextrose 5%/0.45% NS 1,000 ML IV SCH (15:00)
[2018-10-12] MEDS: HYDROmorphone 0.5 mg/0.5 ml ISec IVP PRN ×2 (15:45→16:05)
--- NOTE | 2018-10-12 18:28 | CP.PCM.PN ---
Subjective - Date & Time of Evaluation Date of Evaluation: 10/12/18 Time of Evaluation: 10:00 - Subjective Subjective: discussed on rounds IV rx in progress for d/c on PO rx aftewr OR tomorrow would d/c on Zyvox 600 bid x 7 days Objective - Vital Signs/Intake and Output Vital Signs (last 24 hours): Temp Pulse Resp BP Pulse Ox 97.6 F 80 20 125/77 98 10/12/18 16:47 10/12/18 16:47 10/12/18 16:47 10/12/18 16:47 10/12/18 16:47 Intake and Output: 10/12/18 10/12/18 06:59 18:59 Intake Total 300 Balance 300 - Medications Medications: Current Medications Acetaminophen/Codeine Phosphate (Tylenol/Codeine 300 Mg/30 Mg) 1 ea PO Q4H PRN PRN Reason: pain Last Admin: 10/11/18 20:36 Dose: 1 ea Docusate Sodium (Colace) 100 mg PO BID [facility] Last Admin: 10/12/18 17:53 Dose: 100 mg Enoxaparin Sodium (Lovenox) 30 mg SC DAILY [facility] Last Admin: 10/11/18 09:39 Dose: 30 mg Dextrose/Sodium Chloride (Dextrose 5%/0.45% Ns 1000 Ml) 1,000 mls @ 60 mls/hr IV .[id number] [facility] Last Admin: 10/12/18 15:00 Dose: Not Given Vancomycin/Sodium Chloride (Vancomycin 1 Gm/Ns 200 Ml) 1 gm in 200 mls @ 133.333 mls/hr IVPB Q12H [facility]; Protocol Last Admin: 10/12/18 14:15 Dose: 133.333 mls/hr Ketorolac Tromethamine (Toradol) 30 mg IVP Q6 PRN PRN Reason: pain 7-10 Stop: 10/15/18 13:09 Last Admin: 10/12/18 07:51 Dose: 30 mg Ondansetron HCl (Zofran Inj) 4 mg IVP Q6 PRN PRN Reason: Nausea/Vomiting Last Admin: 10/10/18 16:53 Dose: 4 mg Pantoprazole Sodium (Protonix Inj) 40 mg IVP DAILY [facility] Last Admin: 10/12/18 10:35 Dose: 40 mg - Labs Labs: 10/12/18 11:07 10/12/18 11:07 PT 12.5 SECONDS (9.7-12.2) H 10/10/18 10:57 INR 1.1 10/10/18 10:57 APTT 41 SECONDS (21-34) H 10/10/18 10:57 - Constitutional Appears: Non-toxic, Chronically Ill - Head Exam Head Exam: NORMOCEPHALIC - Eye Exam Eye Exam: absent: Scleral icterus - ENT Exam ENT Exam: Mucous Membranes Dry - Neck Exam Neck Exam: absent: Lymphadenopathy - Respiratory Exam Respiratory Exam: Decreased Breath Sounds - Cardiovascular Exam Cardiovascular Exam: REGULAR RHYTHM - GI/Abdominal Exam GI & Abdominal Exam: Distended - Rectal Exam Rectal Exam: Deferred - Exam Exam: NORMAL INSPECTION - Extremities Exam Extremities Exam: absent: Pedal Edema - Back Exam Back Exam: absent: CVA tenderness (L), CVA tenderness (R) Assessment and Plan (1) Abscess of arm, left Status: Acute (2) Cellulitis Status: Acute - Assessment and Plan (Free Text) Assessment: for d/c on PO rx after OR tomorrow would d/c on Zyvox 600 bid x 7 days
[2018-10-13] MEDS: Vancomycin 1 gm/NS 200 ml 1 GM/200 ML BAG IVPB SCH (01:17)
[2018-10-13] MEDS: Dextrose 5%/0.45% NS 1,000 ML IV SCH (01:19)
--- NOTE | 2018-10-13 04:57 | OP ---
PROCEDURE DATE: 10/12/2018 PREOPERATIVE DIAGNOSIS: Infected axillary mesh with deep abscess. POSTOPERATIVE DIAGNOSIS: Infected axillary mesh with deep abscess. PROCEDURES PERFORMED: Reinsertion of deep axillary abscess with debridement, drainage, and partial tissue flap closure. SURGEON: Pb Spring MD ANESTHESIA: General. BLOOD LOSS: 30 mL. POSTOPERATIVE CONDITION: Stable. INDICATIONS FOR SURGERY: This is a 38-year-old female, taken to the OR two days ago for drainage of a deep arm and axillary abscess, which was nearly to the chest wall. She now is taken back for change of a deep packing under anesthesia. DESCRIPTION OF PROCEDURE: The patient was taken to the operating room. General anesthesia was administered. The left arm was extended. The left arm and axillary area were prepped and draped after the previous packing was removed. There was a fair amount of vigorous bleeding when the packing was removed. This was immediately encountered, and a chest wall blood vessel was encountered and repaired using 6-0 Prolene. Blood flow was confirmed by Doppler. The wound was then aggressively debrided, and the remaining collections were drained and cultured. It was pulse irrigated. A partial advancement flap closure full thickness utilizing counter incision was performed, totaling 20 sq cm. The central portion was the wound. They packed up the wound with saline gauze. The patient tolerated the procedure well and returned to recovery room in stable condition. Pb Spring MD
[2018-10-13 07:19] LABS: BASO % 0.7 % (0.0-2.0); EOS # 0.2 K/uL (0.0-0.7); EOS % 2.4 % (0.0-4.0); HEMOGLOBIN 10.1 g/dL (11.0-16.0); LYMPH # 2.4 K/uL (1.0-4.3); MEAN CELL VOLUME 83.7 fL (81.0-99.0); MEAN CORPUSCULAR HEMOGLOBIN 27.4 pg (27.0-31.0); MEAN CORPUSCULAR HGB CONC 32.8 g/dL (33.0-37.0); MEAN PLATELET VOLUME 8.1 fL (7.2-11.7); MONO # 0.5 K/uL (0.0-0.8); MONO % 6.6 % (0.0-10.0); NEUT # 4.5 K/uL (1.8-7.0); NEUT % 58.3 % (50.0-75.0); RBC 3.67 Mil/uL (3.80-5.20); RED CELL DISTRIBUTION WIDTH 13.5 % (11.5-14.5); WHITE BLOOD COUNT 7.6 K/uL (4.8-10.8)
[2018-10-13 07:35] LABS: ALB/GLOB RATIO 1.1 (1.0-2.1); ALBUMIN 3.2 g/dL (3.5-5.0); ALT/SGPT 20 U/L (9-52); AST/SGOT 25 U/L (14-36); BLOOD UREA NITROGEN 13 mg/dL (7-17); CALCIUM 8.1 mg/dl (8.6-10.4); GFR NON-AFRICAN AMERICAN > 60
[2018-10-13] MEDS ORDERED: Midazolam 2 MG/2 ML VIAL ONE (11:35)
[2018-10-13] MEDS ORDERED: Propofol 10 mg/ml Inj (20 ML) ONE (11:35)
[2018-10-13] MEDS ORDERED: Bacitracin Ointment 30 GM TUBE ONE (11:58)
[2018-10-13] MEDS ORDERED: HYDROmorphone 0.5 mg/0.5 ml ISec IVP PRN (12:03)
[2018-10-13 13:36] VITALS: RESP 20
[2018-10-13 15:43] VITALS: BP 104/71; PULSE 86; TEMP 98.1; O2SAT 96
--- NOTE | 2018-10-13 23:12 | OP ---
PROCEDURE DATE: 10/13/2018 PREOPERATIVE DIAGNOSIS: Extensive left axillary chest wall abscess. POSTOPERATIVE DIAGNOSIS: Extensive left axillary chest wall abscess. PROCEDURE PERFORMED: Debridement of abscess cavity, pulse irrigation, and advancement flap closure of wound. SURGEON: Pb Spring MD ANESTHESIA: General. ESTIMATED BLOOD LOSS: 30 mL. POSTOPERATIVE CONDITION: Stable. INDICATIONS FOR SURGERY: This is a 38-year-old female with a staged procedure, taken back to the OR with a large wound in the left arm and axilla, status post drainage of a deep abscess. She is now taken back for pulse irrigation, debridement, and closure. PROCEDURE: The patient was taken to the operating room, general anesthesia was administered. The left arm was extended. The left shoulder, axilla, arm, and chest wall were prepped and draped. The wound was again aggressively debrided. Any remaining collections were drained and cultured. Bleeding was controlled using the Bovie. A larger chest wall blood vessel was again mobilized and repaired with 6-0 Prolene. The wound was then pulse irrigated with 3 liters of saline solution. Generous full-thickness tissue flaps were raised. Counter incisions were made and a tissue flap closure was performed, totaling 32 cm2 using multiple layers of heavy Monocryl and subcuticular Monocryl. The patient tolerated the procedure well and returned to recovery room in stable condition. Pb Spring MD
== END 2018-10-13 16:18 | disposition home or self-care (01) | DRG 574 ==
LOC: C.ER 09:58 → C.6T 09:58 → C.SDS 11:30 → C.9S 13:09 → MERGE 13:09 → C.9P 23:05 → C.6T 10-11 19:02
PROVIDERS: ADMIT Surgery; ATTEND Surgery
PROC: 0HXCXZZ Transfer Left Upper Arm Skin, External Approach (ICD-10-PCS; 2018-10-10)
PROC: 0J9F0ZZ Drainage of Left Upper Arm Subcutaneous Tissue and Fascia, Open Approach (ICD-10-PCS; 2018-10-10)
PROC: 0JBF0ZZ Excision of Left Upper Arm Subcutaneous Tissue and Fascia, Open Approach (ICD-10-PCS; principal; 2018-10-10 15:00)
PROC: 0HX5XZZ Transfer Chest Skin, External Approach (ICD-10-PCS; 2018-10-12)
PROC: 0HXCXZZ Transfer Left Upper Arm Skin, External Approach (ICD-10-PCS; 2018-10-12)
PROC: 0H95XZZ Drainage of Chest Skin, External Approach (ICD-10-PCS; 2018-10-12)
PROC: 0HBCXZZ Excision of Left Upper Arm Skin, External Approach (ICD-10-PCS; 2018-10-12)
PROC: 0HB5XZZ Excision of Chest Skin, External Approach (ICD-10-PCS; 2018-10-12)
PROC: 0HX5XZZ Transfer Chest Skin, External Approach (ICD-10-PCS; 2018-10-13)
PROC: 0JBF0ZZ Excision of Left Upper Arm Subcutaneous Tissue and Fascia, Open Approach (ICD-10-PCS; 2018-10-13)
PROC: 0JB60ZZ Excision of Chest Subcutaneous Tissue and Fascia, Open Approach (ICD-10-PCS; 2018-10-13)
PROC: 0HDCXZZ Extraction of Left Upper Arm Skin, External Approach (ICD-10-PCS; 2018-10-13)
PROC: 0HD5XZZ Extraction of Chest Skin, External Approach (ICD-10-PCS; 2018-10-13)
DX: L02.412 Cutaneous abscess of left axilla (principal); L02.213 Cutaneous abscess of chest wall; L02.414 Cutaneous abscess of left upper limb; L03.114 Cellulitis of left upper limb; B95.62 Methicillin resistant Staphylococcus aureus infection as the cause of diseases classified elsewhere; Z83.3 Family history of diabetes mellitus